=== PATIENT | male | born 1970 | race Caucasian/White ===

== ENCOUNTER → 2019-07-21 | Outpatient (CLI) | payer OTHER ==
[~2019-07-21] MED LIST: ATOR40TA78 PO; DULA1.5P SC; DULO30CA2 PO; FENO145T32 PO; GABA300C10 PO; GABA600T7 PO; HYDR-3245 PO; INSU100C SQ-INSULIN; INSU100I13 SC; METF1000 PO; METF850T10 PO; MULT-257 PO; OMEG1CAP6 PO; OXYC5CAP2 PO; TOPI100T8 PO; [UNRECOGNIZED DRUG - CODE] PO; b 12 PO
[2019-07-21 15:03] LABS: BASOPHILS # (AUTO) 0.05 x10^3/uL (0-0.1); BASOPHILS % (AUTO) 0 % (0-1); EOSINOPHILS # (AUTO) 0.29 x10^3/uL (0-0.4); EOSINOPHILS % (AUTO) 3 % (1-7); LYMPHOCYTES # (AUTO) 2.52 x10^3/uL (1-3.4); LYMPHOCYTES % (AUTO) 23 % (22-44); MD NO; MEAN CORPUSCULAR HEMOGLOBIN 29.1 pg (27.5-34.5); MEAN CORPUSCULAR HGB CONC 33.8 g/dL (33.2-36.2); MEAN CORPUSCULAR VOLUME 86.2 fL (81-97); MEAN PLATELET VOLUME 7.3 fL (7.4-10.4); MONOCYTES % (AUTO) 6 % (2-9); NEUTROPHILS % (AUTO) 69 % (42-75); PLATELET COUNT 354 x10^3/uL (130-400); RED BLOOD COUNT 4.92 x10^6/uL (4.38-5.82)
[2019-07-21 15:11] LABS: ALANINE AMINOTRANSFERASE 43 U/L (12-78); ANION GAP 6 mmol/L (5-15); CALCIUM 9.2 mg/dL (8.5-10.1); CHLORIDE 108 mmol/L (98-107); CREATININE 1.12 mg/dL (0.7-1.3)
[2019-07-21 15:13] LABS: ALKALINE PHOSPHATASE 100 U/L (45-117); TOTAL PROTEIN 7.7 g/dL (6.4-8.2)
[2019-07-21 15:20] LABS: INTERNATIONAL NORMALIZED RATIO 0.93 (0.93-1.1); PROTHROMBIN TIME 9.9 Seconds (9.6-11.5)
== END | disposition home or self-care (01) ==
LOC: STAR 13:32
PROVIDERS: ATTEND Neurological Surgery
DX: Z01.818 Encounter for other preprocedural examination (principal)
CPT/HCPCS: 36415; 71046; 80053; 85025; 85610; 85730; 93005